=== PATIENT | female | born 1965 | race African-American/Black ===

== ENCOUNTER 2019-12-09 16:25 | Emergency (ER) | payer MEDICAID ==
[~2019-12-09] VITALS: Ht 175.3 cm; Wt 108.9 kg
[2019-12-09 21:03] VITALS: BP 151/92
== END 2019-12-09 21:10 | disposition home or self-care (01) ==
LOC: ER 16:29
DX: J20.9 Acute bronchitis, unspecified (principal); R07.9 Chest pain, unspecified
CPT/HCPCS: 71045; 93005

== ENCOUNTER 2020-08-11 12:09 | Emergency (ER) | payer MEDICAID ==
[~2020-08-11] VITALS: Ht 175.3 cm; Wt 113.4 kg
[2020-08-11] MEDS ORDERED: KETOROLAC TROMETH 60MG/2ML VIAL IM ONE (16:15)
[2020-08-11 16:30] VITALS: BP 148/82
== END 2020-08-11 17:38 | disposition home or self-care (01) ==
LOC: ER 12:09
DX: M54.6 Pain in thoracic spine (principal)
CPT/HCPCS: 72070; 72100; 93005; 96372; 99284; J1885; 81002

== ENCOUNTER 2021-05-03 16:08 | Emergency (ER) | payer MEDICAID ==
[~2021-05-03] VITALS: Ht 175.3 cm; Wt 114.3 kg
[2021-05-03 17:48] VITALS: BP 155/95
== END 2021-05-03 17:59 | disposition home or self-care (01) ==
LOC: ER 16:08
DX: J41.1 Mucopurulent chronic bronchitis (principal); F17.210 Nicotine dependence, cigarettes, uncomplicated
CPT/HCPCS: 71045

== ENCOUNTER 2021-05-13 14:58 | Emergency (ER) | payer MEDICAID ==
[~2021-05-13] VITALS: Ht 175.3 cm; Wt 112.0 kg
[2021-05-13 16:14] LABS: Basophils # (auto) 0.1 10 ^3/uL (0-0.2); Basophils % (auto) 1.3 % (0.0-2.0); Eosinophils # (auto) 0.3 10 ^3/uL (0-0.8); Eosinophils % (auto) 3.2 % (0.0-7.0); Hematocrit 42.4 % (36.0-46.0); Hemoglobin 14.6 g/dL (12.2-16.2); Lymphocytes # (auto) 3.8 10 ^3/uL (0.4-5.4); Lymphocytes % (auto) 40.6 % (10.0-50.0); Mean Corpuscular Hemoglobin 29.7 pg (28.0-32.0); Mean Corpuscular Hgb Conc. 34.5 g/dL (32.0-36.0); Monocytes # (auto) 0.9 10 ^3/uL (0-1.3); Monocytes % (auto) 9.7 % (0.0-12.0); Neutrophils # (auto) 4.2 10 ^3/uL (1.6-8.6); Neutrophils % (auto) 45.2 % (37.0-80.0); Nucleated Red Blood Cells % 0.1 %; Red Blood Cells 4.94 10^6/uL (4.0-5.20); Red Cell Distribution Width 13.8 % (11.8-14.3); White Blood Cell 9.3 10^3/uL (4.4-10.8)
[2021-05-13] MEDS ORDERED: ACETAMINOPHEN 325 MG TAB PO ONE (16:15)
[2021-05-13] MEDS ORDERED: MECLIZINE HCL 25 MG TAB PO ONE (16:15)
[2021-05-13] MEDS ORDERED: SODIUM CHLORIDE 0.9% 1,000 ML IV ONE (16:15)
[2021-05-13 16:32] LABS: Albumin 3.5 g/dL (3.4-5.0); Anion Gap 6 (5-15); Aspartate Aminotransferase 17 U/L (15-37); Blood Urea Nitrogen 14 mg/dL (7-18); Carbon Dioxide 26 mmol/L (21-32); Chloride 110 mmol/L (98-107); Glucose 98 mg/dL (74-106); Potassium 3.6 mmol/L (3.5-5.1); Sodium 142 mmol/L (136-145)
[2021-05-13 16:37] LABS: Alanine Aminotransferase 35 U/L (13-56); Alkaline Phosphatase 101 U/L (45-117); BUN/Creatinine Ratio 17.9; Bilirubin, Total 0.3 mg/dL (0.2-1.0); GFR African American 98 mL/min; GFR Non-African American 81 mL/min; Total Protein 7.6 g/dL (6.4-8.2)
[2021-05-13 21:09] VITALS: BP 139/79
== END 2021-05-13 21:20 | disposition home or self-care (01) ==
LOC: ER 14:58
DX: J06.9 Acute upper respiratory infection, unspecified (principal); R42 Dizziness and giddiness; R51.9 Headache, unspecified; Z20.822 Contact with and (suspected) exposure to COVID-19; Z87.891 Personal history of nicotine dependence
CPT/HCPCS: 36415; 70450; 71045; 80053; 84484; 85025; 87426; 93005; 96360; 96361; 99285; J7030; J8597

== ENCOUNTER 2021-11-05 14:13 | Emergency (ER) | payer MEDICAID ==
[~2021-11-05] VITALS: Ht 175.3 cm; Wt 109.8 kg
[2021-11-05 16:08] VITALS: BP 151/77
[2021-11-05] MEDS ORDERED: IBUP800T27 PO (16:16)
[2021-11-05] MEDS ORDERED: METH750T22 PO (16:16)
== END 2021-11-05 16:36 | disposition home or self-care (01) ==
LOC: ER 14:13
DX: M77.8 Other enthesopathies, not elsewhere classified (principal); I10 Essential (primary) hypertension; Z87.891 Personal history of nicotine dependence; Z79.1 Long term (current) use of non-steroidal anti-inflammatories (NSAID); Z79.899 Other long term (current) drug therapy
CPT/HCPCS: 73030

== ENCOUNTER 2022-03-27 10:15 | Emergency (ER) | payer MEDICAID ==
[~2022-03-27] VITALS: Ht 175.3 cm; Wt 111.1 kg
[~2022-03-27 10:15] MED LIST: IBUP800T27 PO; METH750T22 PO
[2022-03-27] MEDS ORDERED: PRED20TA2 PO (11:38)
[2022-03-27] MEDS ORDERED: AMOX-277 PO (11:38)
[2022-03-27 14:20] VITALS: BP 129/61
== END 2022-03-27 14:50 | disposition home or self-care (01) ==
LOC: ER 10:15
DX: J06.9 Acute upper respiratory infection, unspecified (principal); I10 Essential (primary) hypertension; E03.9 Hypothyroidism, unspecified; Z87.891 Personal history of nicotine dependence
CPT/HCPCS: 71045

== ENCOUNTER 2022-08-04 14:55 | Inpatient (IN) | payer MEDICAID ==
[~2022-08-04] VITALS: Ht 175.3 cm; Wt 111.0 kg
[~2022-08-04 14:55] MED LIST changes: +AMOX-277 PO; +PRED20TA2 PO
[2022-08-04 15:43] LABS: Basophils # (auto) 0.1 10 ^3/uL (0-0.2); Basophils % (auto) 0.7 % (0.0-2.0); Eosinophils # (auto) 0.2 10 ^3/uL (0-0.8); Eosinophils % (auto) 2.7 % (0.0-7.0); Hemoglobin 14.3 g/dL (12.2-16.2); Lymphocytes # (auto) 3.3 10 ^3/uL (0.4-5.4); Lymphocytes % (auto) 41.6 % (10.0-50.0); Mean Corpuscular Hemoglobin 28.2 pg (28.0-32.0); Mean Corpuscular Hgb Conc. 32.6 g/dL (32.0-36.0); Mean Corpuscular Volume 86.6 fL (80.0-100.0); Monocytes # (auto) 0.6 10 ^3/uL (0-1.3); Monocytes % (auto) 7.6 % (0.0-12.0); Neutrophils # (auto) 3.7 10 ^3/uL (1.6-8.6); Neutrophils % (auto) 47.4 % (37.0-80.0); Nucleated Red Blood Cells % 0.1 %; Red Blood Cells 5.08 10^6/uL (4.0-5.20); Red Cell Distribution Width 13.4 % (11.8-14.3); White Blood Cell 7.9 10^3/uL (4.4-10.8)
[2022-08-04] MEDS ORDERED: NITROGLYCERIN 0.4 MG SL TAB SL ONE (16:00)
[2022-08-04] MEDS ORDERED: ASPirin 325 MG TAB PO ONE (16:00)
[2022-08-04 16:04] LABS: Albumin 3.8 g/dL (3.4-5.0); Calcium 9.4 mg/dL (8.5-10.1); Magnesium 2.1 mg/dL (1.6-2.6); Potassium 3.9 mmol/L (3.5-5.1)
[2022-08-04 16:10] LABS: Bilirubin, Total 0.4 mg/dL (0.2-1.0)
[2022-08-04 16:12] LABS: BUN/Creatinine Ratio 12.4
[2022-08-04] MEDS ORDERED: ACETAMINOPHEN 325 MG TAB PO PRN (21:45)
[2022-08-04] MEDS ORDERED: ONDANSETRON HCL 4 MG/2 ML VIAL IV PRN (21:45)
[2022-08-04] MEDS ORDERED: MORPHINE SULFATE INJ 2 MG/ml SYRG IV PRN ×2 (21:45→23:00)
[2022-08-04] MEDS ORDERED: NITROGLYCERIN 0.4 MG SL TAB SL PRN ×2 (21:45→23:00)
[2022-08-04] MEDS ORDERED: DOCUSATE SOD 100 MG CAP PO PRN (21:45)
[2022-08-04] MEDS ORDERED: SODIUM CHLOR 0.9% PF (SALINE LOCK) 10ML VIAL/SYR IV SCH (22:00)
[2022-08-05] VITALS (14 sets, daily range): BP systolic 106–140; BP diastolic 58–84
[2022-08-05 04:26] LABS: Basophils # (auto) 0.1 10 ^3/uL (0-0.2); Basophils % (auto) 0.9 % (0.0-2.0); Eosinophils # (auto) 0.2 10 ^3/uL (0-0.8); Eosinophils % (auto) 2.1 % (0.0-7.0); Hematocrit 43.6 % (36.0-46.0); Hemoglobin 14.7 g/dL (12.2-16.2); Lymphocytes # (auto) 4.3 10 ^3/uL (0.4-5.4); Lymphocytes % (auto) 41.9 % (10.0-50.0); Mean Corpuscular Hemoglobin 29.1 pg (28.0-32.0); Mean Corpuscular Hgb Conc. 33.8 g/dL (32.0-36.0); Mean Corpuscular Volume 86.1 fL (80.0-100.0); Monocytes # (auto) 0.9 10 ^3/uL (0-1.3); Monocytes % (auto) 8.7 % (0.0-12.0); Neutrophils # (auto) 4.8 10 ^3/uL (1.6-8.6); Neutrophils % (auto) 46.4 % (37.0-80.0); Red Blood Cells 5.06 10^6/uL (4.0-5.20); Red Cell Distribution Width 13.2 % (11.8-14.3); White Blood Cell 10.3 10^3/uL (4.4-10.8)
[2022-08-05 04:32] LABS: Albumin 3.9 g/dL (3.4-5.0); Calcium 9.5 mg/dL (8.5-10.1); Potassium 3.7 mmol/L (3.5-5.1)
[2022-08-05 04:38] LABS: BUN/Creatinine Ratio 17.9; Bilirubin, Total 0.4 mg/dL (0.2-1.0); Total Protein 8.3 g/dL (6.4-8.2)
[2022-08-05] MEDS: SODIUM CHLOR 0.9% PF (SALINE LOCK) 10ML VIAL/SYR IV SCH ×3 (06:00→21:22)
[2022-08-05] MEDS: ASPirin 81 mg TAB PO SCH (08:50)
[2022-08-05] MEDS ORDERED: ADENOSINE 93 MG in GIVE UN-DILUTED 0 ML IV ONE ×2 (11:00→13:15)
[2022-08-05] MEDS ORDERED: ONDANSETRON HCL 4 MG/2 ML VIAL IV ONE (14:45)
[2022-08-05] MEDS ORDERED: LIDOCAINE 2%HCL (LOCAL ANESTH.) INJ 20ML MDV ONE (16:41)
[2022-08-05] MEDS ORDERED: IODIXANOL 320MG/ML 100ML BTL IV ONE (16:41)
[2022-08-05] MEDS ORDERED: fentaNYL CITRATE 100 MCG/2 ML VL ONE (16:41)
[2022-08-05] MEDS ORDERED: MIDAZOLAM HCL 2MG/2ML 2ml VIAL (1mg/ml) ONE (16:42)
[2022-08-05] MEDS ORDERED: ANGIOMAX 250 MG VIAL IV ONE (16:45)
[2022-08-05] MEDS ORDERED: HEPARIN SODIUM (PORCINE) 5000 UNITS/ML 1ML VIAL ONE (16:45)
[2022-08-05] MEDS ORDERED: SODIUM CHL 0.9% 0 ML ONE (16:45)
[2022-08-05] MEDS ORDERED: VERAPAMIL 2.5MG/ML INJ 2ML VIAL IV ONE (16:48)
[2022-08-05] MEDS: HYDROcodone-ACET 5/325MG TAB PO PRN (21:28)
[2022-08-05] MEDS ORDERED: ATORVASTATIN 20 MG TAB PO SCH (22:00)
[2022-08-06 05:00] VITALS: BP 113/78
[2022-08-06] MEDS: SODIUM CHLOR 0.9% PF (SALINE LOCK) 10ML VIAL/SYR IV SCH ×2 (06:42→14:06)
[2022-08-06] MEDS: HYDROcodone-ACET 5/325MG TAB PO PRN (08:55)
[2022-08-06 09:00] VITALS: BP 131/77
[2022-08-06] MEDS: ASPirin 81 mg TAB PO SCH (10:12)
[2022-08-06 12:15] VITALS: BP 124/72
[2022-08-06 14:30] VITALS: BP 124/72
[2022-08-08] MEDS ORDERED: ATOR10TA PO (09:48)
[2022-08-08] MEDS ORDERED: ASPI1TAB20 PO (09:48)
== END 2022-08-06 15:15 | disposition home or self-care (01) | DRG 192 ==
LOC: ER 14:55 → TELE 22:52 → TELE-CENTR 08-05 18:08
PROVIDERS: ADMIT Nurse Practitioner Family; ATTEND Internal Medicine
PROC: 4A023N7 Measurement of Cardiac Sampling and Pressure, Left Heart, Percutaneous Approach (ICD-10-PCS; principal; 2022-08-05)
PROC: B211YZZ Fluoroscopy of Multiple Coronary Arteries using Other Contrast (ICD-10-PCS; 2022-08-05)
PROC: B215YZZ Fluoroscopy of Left Heart using Other Contrast (ICD-10-PCS; 2022-08-05)
DX: R07.9 Chest pain, unspecified (principal); E03.9 Hypothyroidism, unspecified; E66.9 Obesity, unspecified; E78.5 Hyperlipidemia, unspecified; G89.29 Other chronic pain; I10 Essential (primary) hypertension; F17.210 Nicotine dependence, cigarettes, uncomplicated; Z20.822 Contact with and (suspected) exposure to COVID-19
CPT/HCPCS: 36415; 71045; 78452; 80053; 80061; 83036; 83735; 84443; 84484; 85025; 87426; 93005; 93017; 93306; 96365; 96366; 99152; G0378; J0153; J2250; Q9967

== ENCOUNTER 2023-01-22 09:39 | Emergency (ER) | payer MEDICAID ==
[~2023-01-22] VITALS: Ht 170.2 cm; Wt 115.6 kg
[~2023-01-22 09:39] MED LIST changes: +ASPI1TAB20 PO; +ATOR10TA PO
[2023-01-22] MEDS ORDERED: HYDR25TA4 PO (10:00)
[2023-01-22] MEDS ORDERED: ATOR20TA50 PO (10:00)
[2023-01-22 10:36] VITALS: BP 128/77
[2023-01-22] MEDS ORDERED: PROM1SOL4 PO (10:45)
[2023-01-22] MEDS ORDERED: AZIT500T66 PO (10:45)
== END 2023-01-22 10:54 | disposition home or self-care (01) ==
LOC: ER 09:39
DX: J20.9 Acute bronchitis, unspecified (principal); J03.90 Acute tonsillitis, unspecified; I10 Essential (primary) hypertension; Z87.891 Personal history of nicotine dependence
CPT/HCPCS: 71046

== ENCOUNTER 2024-05-13 20:18 | Emergency (ER) | payer MEDICAID, OTHER ==
[~2024-05-13] VITALS: Ht 175.3 cm; Wt 115.0 kg
[~2024-05-13 20:18] MED LIST changes: -AMOX-277 PO; -ATOR10TA PO; +ATOR20TA50 PO; +AZIT500T66 PO; +HYDR25TA4 PO; +IBUP-1456 PO; -IBUP800T27 PO; +METH-1182 PO; -METH750T22 PO; -PRED20TA2 PO; +PROM1SOL4 PO
[2024-05-13 22:23] LABS: Urine Bacteria FEW /hpf (None Seen); Urine Blood 2+ /uL (Negative); Urine Clarity Clear (Clear); Urine Color Yellow (Yellow); Urine Mucus FEW (None Seen); Urine Protein, UAD 1+ (Negative); Urine Specific Gravity 1.028 (1.001-1.035); Urine Urobilinogen Normal (Negative); Urine WBC 10 /hpf (0 - 5)
[2024-05-13 22:34] LABS: Basophils # (auto) 0.1 10 ^3/uL (0-0.2); Basophils % (auto) 0.8 % (0.0-2.0); Eosinophils # (auto) 0.3 10 ^3/uL (0-0.8); Eosinophils % (auto) 2.6 % (0.0-7.0); Hemoglobin 14.7 g/dL (12.2-16.2); Lymphocytes # (auto) 3.5 10 ^3/uL (0.4-5.4); Lymphocytes % (auto) 27.8 % (10.0-50.0); Mean Corpuscular Hemoglobin 28.8 pg (28.0-32.0); Mean Corpuscular Hgb Conc. 33.5 g/dL (32.0-36.0); Mean Corpuscular Volume 85.9 fL (80.0-100.0); Monocytes # (auto) 1.2 10 ^3/uL (0-1.3); Monocytes % (auto) 9.2 % (0.0-12.0); Neutrophils # (auto) 7.6 10 ^3/uL (1.6-8.6); Neutrophils % (auto) 59.6 % (37.0-80.0); Nucleated Red Blood Cells % 0.1 %; Red Blood Cells 5.12 10^6/uL (4.0-5.20); Red Cell Distribution Width 13.5 % (11.8-14.3); White Blood Cell 12.7 10^3/uL (4.4-10.8)
[2024-05-13 22:40] LABS: Alanine Aminotransferase 15 U/L (7-40); Albumin 4.4 g/dL (3.2-4.8); Alkaline Phosphatase 115 U/L (46-116); Anion Gap 8 (5-15); Aspartate Aminotransferase 13 U/L (13-40); BUN/Creatinine Ratio 10.3 (10.0-20.0); Bilirubin, Total 0.3 mg/dL (0.2-1.0); Blood Urea Nitrogen 10 mg/dL (9-23); Calcium 9.3 mg/dL (8.7-10.4); Carbon Dioxide 25 mmol/L (20-30); Chloride 105 mmol/L (98-107); Glucose 113 mg/dL (74-106); Lipase 32 U/L (12-53); Potassium 3.3 mmol/L (3.5-5.1); Sodium 138 mmol/L (136-145); Total Protein 7.5 g/dL (5.7-8.2)
[2024-05-13 22:54] LABS: Partial Thromboplastin Time 29.9 SEC (24.5-34.5); Prothrombin Time 10.6 sec (9.3-11.8)
[2024-05-13] MEDS ORDERED: MEDR5TAB28 PO (23:53)
[2024-05-13] MEDS ORDERED: LEVO500T91 PO (23:53)
[2024-05-14 01:29] VITALS: BP 114/73; TEMP 98.1
[2024-05-14] MEDS: SODIUM CHLORIDE 0.9% 2,000 ML IV ONE (02:00)
[2024-05-14] MEDS: ONDANSETRON ODT 4 MG TAB PO ONE (02:00)
[2024-05-14 02:02] VITALS: PULSE 85; RESP 18; O2SAT 94
== END 2024-05-14 02:28 | disposition home or self-care (01) ==
LOC: ER 20:18
DX: N93.9 Abnormal uterine and vaginal bleeding, unspecified (principal); N39.0 Urinary tract infection, site not specified; I10 Essential (primary) hypertension; E03.9 Hypothyroidism, unspecified; Z79.899 Other long term (current) drug therapy; Z79.82 Long term (current) use of aspirin; Z79.1 Long term (current) use of non-steroidal anti-inflammatories (NSAID); Z87.891 Personal history of nicotine dependence
CPT/HCPCS: 36415; 71045; 74176; 80053; 81001; 83690; 83880; 84484; 85025; 85610; 85730; 93005; 99285; J7030; Q0162

== ENCOUNTER 2024-08-01 12:35 | Emergency (ER) | payer OTHER ==
[~2024-08-01] VITALS: Ht 175.3 cm; Wt 119.0 kg
[~2024-08-01 12:35] MED LIST changes: +LEVO500T91 PO; +MEDR5TAB28 PO
[2024-08-01 13:14] LABS: Basophils # (auto) 0.1 10 ^3/uL (0-0.2); Basophils % (auto) 0.8 % (0.0-2.0); Eosinophils # (auto) 0.2 10 ^3/uL (0-0.8); Eosinophils % (auto) 2.6 % (0.0-7.0); Hemoglobin 14.5 g/dL (12.2-16.2); Lymphocytes # (auto) 2.7 10 ^3/uL (0.4-5.4); Lymphocytes % (auto) 36.3 % (10.0-50.0); Mean Corpuscular Hemoglobin 29.4 pg (28.0-32.0); Mean Corpuscular Hgb Conc. 33.7 g/dL (32.0-36.0); Mean Corpuscular Volume 87.2 fL (80.0-100.0); Monocytes # (auto) 0.4 10 ^3/uL (0-1.3); Monocytes % (auto) 5.6 % (0.0-12.0); Neutrophils # (auto) 4.1 10 ^3/uL (1.6-8.6); Neutrophils % (auto) 54.7 % (37.0-80.0); Nucleated Red Blood Cells % 0.1 %; Platelet Count (auto) 398 10^3/uL (140-450); Red Blood Cells 4.92 10^6/uL (4.0-5.20); Red Cell Distribution Width 13.7 % (11.8-14.3); White Blood Cell 7.4 10^3/uL (4.4-10.8)
[2024-08-01 13:36] LABS: Alanine Aminotransferase 15 U/L (7-40); Albumin 4.6 g/dL (3.2-4.8); Anion Gap 10 (5-15); Aspartate Aminotransferase 9 U/L (13-40); BUN/Creatinine Ratio 15.5 (10.0-20.0); Blood Urea Nitrogen 16 mg/dL (9-23); Carbon Dioxide 26 mmol/L (20-31); Chloride 107 mmol/L (98-107); Glucose 97 mg/dL (74-106); Magnesium 1.9 mg/dL (1.6-2.6); Potassium 3.8 mmol/L (3.5-5.1); Sodium 143 mmol/L (136-145)
[2024-08-01 13:37] LABS: Bilirubin, Total 0.4 mg/dL (0.2-1.0); Total Protein 7.6 g/dL (5.7-8.2)
[2024-08-01 13:38] LABS: Calcium 10.4 mg/dL (8.7-10.4)
[2024-08-01 13:45] LABS: Alkaline Phosphatase 120 U/L (46-116)
[2024-08-01] MEDS: ASPirin 81 mg TAB PO ONE (14:01)
[2024-08-01 16:02] LABS: Urine Bacteria FEW /hpf (None Seen); Urine Blood Negative /uL (Negative); Urine Clarity Turbid (Clear); Urine Color Yellow (Yellow); Urine Mucus FEW (None Seen); Urine Protein, UAD TRACE (Negative); Urine Specific Gravity 1.031 (1.001-1.035); Urine Urobilinogen Normal (Negative); Urine WBC 18 /hpf (0 - 5); Urine pH 5.5 (5.0-9.0)
[2024-08-01] MEDS ORDERED: NITR-87 PO (17:40)
[2024-08-01 17:53] VITALS: BP 136/62; PULSE 74; RESP 20; TEMP 98.1; O2SAT 96
[2024-08-01] MEDS: NITROFURANTOIN 100 mg CAP PO ONE (18:01)
== END 2024-08-01 18:05 | disposition home or self-care (01) ==
LOC: ER 12:39
DX: R07.89 Other chest pain (principal); N39.0 Urinary tract infection, site not specified; I10 Essential (primary) hypertension; Z87.891 Personal history of nicotine dependence; Z79.899 Other long term (current) drug therapy; Z79.82 Long term (current) use of aspirin
CPT/HCPCS: 36415; 71045; 80053; 81001; 83735; 83880; 84484; 85025; 93005

== ENCOUNTER 2025-03-22 12:20 | Emergency (ER) | payer OTHER ==
[~2025-03-22] VITALS: Ht 175.3 cm; Wt 116.9 kg
[~2025-03-22 12:20] MED LIST changes: +NITR-87 PO
--- NOTE | 2025-03-22 13:43 | ED.PDOC ---
History of Present Illness HPI Comments 59-year-old female presents to the ER with primary care history of diabetes, hypertension, thyroid answering complain of dizziness. Patient reports on having right arm tenderness with palpation + range of motion with for 3-4 days with a cough for one month. Denies chills, fever, N/V/D, SOB, CP. No other as sociated symptoms, modifiers, recent injuries or sick contacts present at this time. Chief Complaint: Dizziness Time Seen by MD: 13:30 Primary Care Provider: SarahOA Reviewed Notes: Nurses Notes, Medications, Allergies Allergies: Coded Allergies: NO KNOWN ALLERGIES (Unverified , 05/03/21) Home Meds Active Scripts Nitrofurantoin Monohydrate Mac (Macrobid) 100 Mg Cap, 100 MG PO BID for 5 Days, #10 CAP Prov:PEDRO RINCON MD 08/01/24 Levofloxacin Hemihydrate (LEVAQUIN 500 MG) 500 Mg Tab, 1 TAB PO DAILY, #7 TAB Prov:JOHN ALANIS MD 05/13/24 Medroxyprogesterone Acetate (PROVERA) 5 Mg Tab, 1 TAB PO DAILY, #30 TAB 11 Refills Prov:JOHN ALANIS MD 05/13/24 Promethazine-Dm (Promethazine Dm 6.25-15 mg/5Ml) 1 Mehnaz Mehnaz, 5 ML PO TID, #150 ML Prov:PARVEEN BLUNT 01/22/23 Azithromycin (Azithromycin) 500 Mg Tab, 1 TAB PO DAILY, #5 TAB Prov:PARVEEN BLUNT 01/22/23 Aspirin (Aspir-81) 81 Mg Tab, 1 TAB PO DAILY, #30 TAB 5 Refills Prov:ADIA RAMIRES MD 08/08/22 Methocarbamol (Methocarbamol) 750 Mg Tab, 750 MG PO QHSP PRN for 20 Days, #20 TAB Prov:PARVEEN BLUNT 11/05/21 Ibuprofen (Ibuprofen) 800 Mg Tab, 800 MG PO Q8HP PRN for 10 Days, #30 TAB Prov:PARVEEN BLUNT 11/05/21 Reported Medications Hydrochlorothiazide (Hydrochlorothiazide) 25 Mg Tab, 1 TAB PO DAILY, #30 TAB 5 Refills 01/22/23 Atorvastatin Calcium (ATORVASTATIN CALCIUM) 20 Mg Tab, 1 TAB PO DAILY, #30 TAB 5 Refills 01/22/23 Information Source: Patient Mode of Arrival: Ambulatory Severity: Moderate Timing: Days Duration: Since onset, Days Prehospital treatment: None Past Medical History PAST MEDICAL HISTORY: DM, HTN, Thyroid Surgical History: Denies all surgeries SCIENTIFIC ARTIST History: Denies all SCIENTIFIC ARTIST Hx Family History Family History: Reviewed,noncontributory to illness, Unknown Social History Smoker: Quit Greater Than 1 Year Alcohol: Denies ETOH Use Drugs: Denies Drug Use Lives In: Home Constitutional: reports: others (Right arm pain with palpation and range of motion); denies: chills, diaphoresis, fatigue, fever, malaise, sweats, weakness EENTM: denies: blurred vision, double vision, ear bleeding, ear discharge, ear drainage, ear pain, ear ringing, eye pain, eye redness, hearing loss, mouth pain, mouth swelling, nasal discharge, nose bleeding, nose congestion, nose pain, photophobia, tearing, throat pain, throat swelling, voice changes, others Respiratory: reports: cough; denies: hemoptysis, orthopnea, SOB at rest, shortness of breath, SOB with excertion, stridor, wheezing, others Cardiovascular: denies: chest pain, dizzy spells, diaphoresis, Dyspnea on exertion, edema, irregular heart beat, left arm pain, lightheadedness, palpitations, PND, syncope, others Gastrointestinal: denies: abdomen distended, abdominal pain, blood streaked bowels, constipated, diarrhea, dysphagia, difficulty swallowing, hematemesis, melena, nausea, poor appetite, poor fluid intake, rectal bleeding, rectal pain, vomiting, others Genitourinary: denies: abnormal vagina bleeding, burning, dyspareunia, dysuria, flank pain, frequency, hematuria, incontinence, pain, , vagina discharge, urgency, others Neurological: denies: dizziness, fainting, headache, left sided numbness, left sided weakness, numbness, paresthesia, pre-existing deficit, right sided numbness, right sided weakness, seizure, speech problems, tingling, tremors, weakness, others Musculoskeletal: denies: back pain, gout, joint pain, joint swelling, muscle pain, muscle stiffness, neck pain, others Integumetry: denies: bruises, change in color, change in hair/nails, dryness, laceration, lesions, lumps, rash, wounds, others Allergic/Immunocompromised: denies: Difficulty Healing, Frequent Infections, Hives, Itching, others Hematologic/Lymphatic: denies: anemia, blood clots, easy bleeding, easy bruising, swollen glands, others Endocrine: denies: excessive hunger, excessive sweating, excessive thirst, excessive urination, flushing, intolerance to cold, intolerance to heat, unexplained weight gain, unexplained weight loss, others Psychiatric: denies: anxiety, bipolar disorder, depression, hopeless, panic disorder, schizophrenia, sleepless, suicidal, others All Other Systems: Reviewed and Negative Physical Exam Exam Comments right arm tenderness with palpation + range of motion General Appearance: No Apparent Distress, Normal HEENT: Normal ENT Inspection, Pharynx Normal, TMs Normal Neck: Full Range of Motion, Non-Tender, Normal, Normal Inspection Respiratory: Chest Non-Tender, Lungs Clear, No Accessory Muscle Use, No Respiratory Distress, Normal Breath Sounds Cardiovascular: No Edema, No JVD, No Murmur, No Gallop, Normal Peripheral Pu lses, Regular Rate/Rhythm Breast Exam: Deferred Gastrointestinal: No Organomegaly, Non Tender, No Pulsatile Mass, Normal Bowel Sounds, Soft Genitalia: Deferred Pelvic: Deferred Rectal: Deferred Extremities: No calf tenderness, Normal capillary refill, Normal inspection, Normal range of motion, Non-tender, No pedal edema Musculoskeletal : Location: Right (shoulder and lateral chest wqall ttp and with ROM) Apperance: Normal Neurologic: Alert, coating machine feeder II-XII nml as Tested, No Motor Deficits, Normal Affect, Normal Mood, No Sensory Deficits Cerebellar Function: Normal Reflexes: Normal Skin: Dry, Normal Color, Warm Lymphatic: No Adenopathy Was a procedure done? Was a procedure done?: No Differential Dx Considerations may include: shoulder strain, arthritis, chest wall pain X-Ray, Labs, Meds, VS Vital Signs Date Time Temp Pulse Resp B/P (MAP) Pulse Ox O2 Delivery O2 Flow Rate FiO2 03/22/25 16:17 54 18 98 Room Air 03/22/25 16:17 97.6 54 18 129/67 (87) 98 97.6 03/22/25 13:00 97.5 67 20 136/66 (89) 97 97.5 Lab Test 03/22/25 13:01 Range/Units POC Glucose 99 70-106 mg/dl Time of 1ST Reevaluation: 14:00 Reevaluation 1ST: Unchanged Time of 2ND Reevaluation: 18:13 Reevaluation 2ND: Unchanged Patient Education/Counseling: Diagnosis, Treatment, Prognosis, Need For Follow Up Family Education/Counseling: No Family Present Additional Information pt does not have dizziness. she has right shoulder close to the lateral chest wall. this pain is worsened by ROM, palpation. cxr is unremarkable. pt is stable for discharge Departure 1 Departure Time of Disposition: 18:13 Impression: Primary Impression: Shoulder pain, right Qualified Codes: M25.511 - Pain in right shoulder Additional Impression: Chest wall pain Disposition: HOME / SELF CARE / HOMELESS Condition: Good e-Prescriptions Hydrocodone-Acetaminophen (Hydrocodone Bitartrate/AC 5-325 mg) 1 Tab Tab 1 TAB PO Q8HP PRN for 3 Days, #9 TAB Prov: SUDHA LIRIANO MD 03/22/25 Discharged With: Self Critical Care Note Critical Care Time?: No Stability Stability form required: No I personally scribed for SUDHA LIRIANO MD ([email or web address]) on 03/22/25 at 13:43. Electronically submitted by Chong Freitas ([email or web address]). SUDHA LIRIANO MD March 22, 2025 13:43
[2025-03-22 16:17] VITALS: TEMP 97.6
[2025-03-22] MEDS ORDERED: HYDR-4902 PO (18:15)
[2025-03-22 19:30] VITALS: BP 110/67; RESP 19
[2025-03-22 19:33] VITALS: PULSE 69; O2SAT 96
--- NOTE | 2025-03-24 11:04 | DVH ---
EXAM: XY CHEST PORTABLE Indication: cp Technique: Single frontal view of the chest was obtained Comparison: XY CHEST PORTABLE on DOS: 08/01/24, XY CHEST PORTABLE on DOS: 05/13/24, EKG on DOS: , CHEST PORTABLE on DOS: 08/04/22, CXRP on DOS: 08/04/22 FINDINGS: Lines and Tubes: None Lungs: No focal consolidation. Pleura: No effusion. No pneumothorax. Cardiomediastinal contours: Unremarkable Bones: No acute osseous abnormality. IMPRESSION: No acute cardiopulmonary disease.
== END 2025-03-22 19:38 | disposition home or self-care (01) ==
LOC: ER 12:25
DX: M25.511 Pain in right shoulder (principal); R07.89 Other chest pain; I10 Essential (primary) hypertension; E11.9 Type 2 diabetes mellitus without complications; E03.9 Hypothyroidism, unspecified; Z79.82 Long term (current) use of aspirin; Z79.899 Other long term (current) drug therapy
CPT/HCPCS: 71045; 82947; 82962